=== PATIENT | female | born 1965 | race Caucasian/White ===

== ENCOUNTER 2019-01-23 12:22 | Emergency (ER) | payer BC, OTHER ==
[~2019-01-23] VITALS: Ht 154.9 cm; Wt 77.3 kg
[2019-01-23 12:23] VITALS: BP 137/80
[2019-01-23] MEDS ORDERED: LASI20TA3 PO (12:38)
[2019-01-23] MEDS ORDERED: TRIA37.5 PO (12:38)
[2019-01-23] MEDS ORDERED: LISI10TA4 PO (12:38)
[2019-01-23] MEDS ORDERED: PLAQ200T4 PO (12:38)
[2019-01-23] MEDS ORDERED: IBUP200C33 PO (12:38)
--- NOTE | 2019-01-23 13:50 | REP ---
Clinical: Trauma. Technique: AP, lateral, bilateral oblique views left hand . Findings: The osseous structures and joint spaces are intact and normal. There is no evidence for acute fracture or dislocation. Surrounding soft tissues are unremarkable. No subcutaneous emphysema or radiodense foreign body. Impression: No acute fracture or dislocation. Electronically Signed by Aldo Nixon MD 01/23/2019 01:41 P
[2019-01-23] MEDS ORDERED: IBUP-1022 PO (14:08)
== END 2019-01-23 14:12 | disposition home or self-care (01) ==
LOC: M ED 12:22
DX: S63.691A Other sprain of left index finger, initial encounter (principal); S63.693A Other sprain of left middle finger, initial encounter; S63.695A Other sprain of left ring finger, initial encounter; W19.XXXA Unspecified fall, initial encounter; Y92.830 Public park as the place of occurrence of the external cause; Y93.9 Activity, unspecified; Y99.9 Unspecified external cause status; Z79.899 Other long term (current) drug therapy; Z91.041 Radiographic dye allergy status